=== PATIENT | male | born 1980 | race Caucasian/White ===

== ENCOUNTER 2018-12-11 15:39 | Emergency (ER) | payer OTHER ==
--- NOTE | 2018-12-11 18:17 | ED ---
Throat Pain/Nasal Congestion - HPI Summary HPI Summary: The patient is a 38 y/o M presenting to [facility] with a chief complaint of intermittent vision changes in the last 3-4 days. He reports that he has been experiencing intermittent episodes of blurred vision, diplopia, and difficulty focusing. He additionally c/o eye fatigue and changes in pupil size today still present more than 24 hours after getting his eyes dilated at his optometrists office yesterday. He denies any eye pain, headache, weakness, numbness, tingling , or dizziness. The symptoms are alleviated by wearing sunglasses. He has changed his contacts twice without relief. His l d rn did not see any visual issues yesterday on dilated exam. PMHx: glasses/contacts. No FHx of MS. Nonsmoker, daily EtOH, no substance use. - History of Current Complaint Chief Complaint: EDEyeProblem Time Seen by Provider: 12/11/18 17:31 Hx Obtained From: Patient Onset/Duration: Sudden Onset, Lasting Days - 3-4, Still Present Severity: Moderate Related History: Other (Noted In Comments) - contacts/glasses, no previous similar symptoms - Allergies/Home Medications Allergies/Adverse Reactions: Allergies Allergy/AdvReac Type Severity Reaction Status Date / Time No Known Allergies Allergy Verified 12/11/18 15:45 Home Medications: Home Medications NK [No Home Medications Reported] 12/11/18 [History Confirmed 12/11/18] PMH/Surg Hx/FS Hx/Imm Hx Endocrine/Hematology History: Denies: Hx Diabetes Cardiovascular History: Denies: Hx Hypertension Sensory History: Reports: Hx Contacts or Glasses Opthamlomology History: Reports: Hx Contacts or Glasses - Surgical History Surgical History: None Surgery Procedure, Year, and Place: none - Immunization History Immunizations Up to Date: Yes Infectious Disease History: No Infectious Disease History: Denies: Traveled Outside the [place] in Last 30 Days - Family History Known Family History: Positive: Other - NEGATIVE: MS - Social History Alcohol Use: Daily Alcohol Amount: 2 beers daily Hx Substance Use: No Substance Use Type: Reports: None Hx Tobacco Use: No Smoking Status (MU): Never Smoked Tobacco Review of Systems Positive: Blurred Vision, Diplopia, Other - POSITIVE: difficulty focusing, eye fatigue, changes in pupil size; NEGATIVE: eye pain Neurological: Other - NEGATIVE: dizziness, tingling Negative: Headache, Weakness, Numbness All Other Systems Reviewed And Are Negative: Yes Physical Exam - Summary Physical Exam Summary: Constitutional: Well-developed, Well-nourished, Alert. (-) Distressed Skin: Warm, Dry HENT: Normocephalic; Atraumatic Eyes: Anisocoria of the right pupil, Sluggish pupils, Conjunctiva normal Neck: Musculoskeletal ROM normal neck. (-) JVD, (-) Nuchal rigidity Cardio: Rhythm regular, rate normal, Heart sounds normal; Intact distal pulses; Radial pulses are 2+ and symmetric. (-) Murmur Pulmonary/Chest wall: Effort normal. (-) Respiratory distress, (-) Wheezes, (-) Rales Abd: Soft. (-) Tenderness, (-) Distension, (-) Guarding, (-) Rebound Musculoskeletal: (-) Edema Lymph: (-) Cervical adenopathy Neuro: Alert, Oriented x3, Strength normal, aside from sluggish pupils, cranial nerves II-XII are grossly intact. SILT, Strength 5/5 BUE and BLE, (-) Dysmetria , (-) Nystagmus, ambulates w steady gait. GCS: 15. Psych: Mood and affect Normal Triage Information Reviewed: Yes Vital Signs On Initial Exam: Initial Vitals Temp Pulse Resp BP Pulse Ox 98.3 F 67 16 147/105 99 12/11/18 15:41 12/11/18 15:41 12/11/18 15:41 12/11/18 15:41 12/11/18 15:41 Vital Signs Reviewed: Yes - Jonah Coma Scale Best Eye Response: 4 - Spontaneous Best Motor Response: 6 - Obeys Commands Best Verbal Response: 5 - Oriented Coma Scale Total: 15 Diagnostics - Vital Signs Vital Signs Temp Pulse Resp BP Pulse Ox 12/11/18 15:41 98.3 F 67 16 147/105 99 - Laboratory Result Diagrams: 12/11/18 18:42 12/11/18 18:42 Lab Statement: Any lab studies that have been ordered have been reviewed, and results considered in the medical decision making process. - Radiology Brain/Orbits MRI Radiology Interpretation Completed By: Radiologist Summary of Radiographic Findings: Impression: 1. Extra-axial fluid collection located in the right cerebellar angle cistern. The fluid collection the plate displaces slightly the adjacent structures. It is located above the seventh and eighth nerve complex. This may represent an arachnoid cyst. 2. The appearance of both orbits are normal. Special attention was given to the optic nerves, optic chiasm, brainstem and cavernous sinus. ED physician has reviewed this report. Re-Evaluation - Re-Evaluation First Eval Re-Evaluation Time: 18:42 Comment: We discussed that he will get a Brain MRI to evaluate for demyelanting causes of symptoms Second Eval Re-Evaluation Time: 20:58 Comment: I discussed MRI results with the patient. He will follow up with Dr. Frausto and Dr. Canas PRN EENT Course/Dx - Course Course Of Treatment: 38-year-old male who presents with visual deficits for several days. Otherwise unremarkable neurologic exam. Differential includes ophthalmologic causes, which have been ruled out by his l d rn, neurologic causes such as MS or tumor,. Will check a brain and orbit MRI with and without contrast and reevaluate. Suspect pupils could be sluggish secondary to medications at l d rn yesterday. No afferent pupil defect - Diagnoses Provider Diagnoses: Visual disturbance, Arachnoid cyst - Provider Notifications Discussed Care Of Patient With: Ventura Canas - neurology Time Discussed With Above Provider: 21:00 Instructed by Provider To: Other - I discussed the patient's case with Dr. Canas concerning the arachnoid cyst. He recommends follow up with opthamology, and he will also follow up with the patient. Discharge - Sign-Out/Discharge Documenting (check all that apply): Patient Departure - Patient will be discharged home. Patient Received Moderate/Deep Sedation with Procedure: No - Discharge Plan Condition: Stable Disposition: HOME Patient Education Materials: Blurred Vision (ED) Referrals: [facility] [place] PHYSICIAN REFERRAL [Outside] - 3 Days Ventura Canas MD [Medical Doctor] - If Needed Ronni Frausto MD [Medical Doctor] - 1 Day Additional Instructions: You were seen in the emergency department for disturbances. Your MRI showed an arachnoid cyst which is not causing your problems. He can follow up with neurology as needed, as well as ophthalmology. If any studies were not completed at the time of discharge you will be called with the relevant results. Please follow up with your primary care doctor in the next 2-3 days and return to the emergency department for worsening or concerning symptoms. It was a pleasure taking care of you today. - Billing Disposition and Condition Condition: STABLE Disposition: Home - Attestation Statements Document Initiated by Bessie: Yes Documenting Scribe: Ksenia Melendez Provider For Whom Bessie is Documenting (Include Credential): Dr. Maurisio Barrienots MD Scribe Attestation: Ksenia Blanc, scribed for Dr. Maurisio Barrientos MD on 12/11/18 at 2116. Scribe Documentation Reviewed: Yes Provider Attestation: The documentation as recorded by the Ksenia cedeno accurately reflects the service I personally performed and the decisions made by me, Dr. Maurisio Barrientos MD Status of Scribe Document: Viewed
[2018-12-11 18:52] LABS: ABS Basophils 0.1 10^3/ul (0-0.2); ABS Eosinophils 0.1 10^3/ul (0-0.6); ABS Lymphocytes 1.9 10^3/ul (1.0-4.8); ABS Monocytes 0.6 10^3/ul (0-0.8); ABS Neutrophils 4.2 10^3/ul (1.5-7.7); Eosinophil % 1.9 %; Hematocrit 43 % (42-52); Hemoglobin 15.3 g/dL (14.0-18.0); Lymphocyte % 27.1 %; Mean Corpuscular HGB Conc 36 g/dL (31-36); Mean Corpuscular Hemoglobin 32 pg (27-31); Mean Corpuscular Volume 90 fL (80-94); Mean Platelet Volume 8.2 fL (7.4-10.4); Nucleated Red Blood Cells % 0.1; Platelet Count 229 10^3/uL (150-450); Red Cell Distribution Width 14 % (10-15); White Blood Count 6.9 10^3/uL (3.5-10.8)
[2018-12-11 19:08] LABS: Albumin 4.8 g/dL (3.2-5.2); Albumin/Globulin Ratio 1.8 (1-3); Calcium 9.7 mg/dL (8.6-10.3); EGFR African American 115.8 (>60); EGFR Non-African American 95.7 (>60); Globulin 2.7 g/dL (2-4); Total Bilirubin 2.8 mg/dL (0.2-1.0); Total Protein 7.5 g/dL (6.4-8.9)
[2018-12-11] MEDS ORDERED: Gadoteridol* (CONTRAST) 279.3 MG/ML 10 ML IV ONE (19:28)
[2018-12-11 22:13] VITALS: BP 141/96
== END 2018-12-11 22:06 | disposition home or self-care (01) ==
LOC: ED 15:39
DX: H53.2 Diplopia (principal); G93.0 Cerebral cysts; H53.8 Other visual disturbances; H57.02 Anisocoria
CPT/HCPCS: 36415; 70543; 80053; 85025; 99283; A9579